=== PATIENT | male | born 1955 | race African-American/Black ===

== ENCOUNTER 2018-03-01 15:25 | Inpatient (IN) | payer MEDICAID ==
[~2018-03-01] VITALS: Ht 177.8 cm; Wt 73.9 kg
[~2018-03-01 15:25] MED LIST: ASPI-1159 PO; ATOR20TA65 PO; CLOP75TA33 PO; GABA-290 PO; METF-415 PO; METO-411 PO
[2018-03-01] MEDS ORDERED: ASPIRIN 325MG TABLET PO ONE (16:09)
[2018-03-01 16:45] LABS: CHLORIDE 102 mEq/L (98-107)
[2018-03-01 16:46] LABS: BASOPHILS % 0.4 % (0.0-2.0); EOSINOPHILS % 1.3 % (0.0-5.0); HEMATOCRIT. 48.3 % (42.0-52.0); HEMOGLOBIN. 15.6 g/dL (14.0-18.0); LYMPHOCYTES % 41.4 % (20.0-50.0); MEAN CORPUSCULAR HEMOGLOBIN 28.5 pg (28.0-32.0); MEAN CORPUSCULAR VOLUME 88.4 fL (80.0-94.0); NEUTROPHILS % 49.9 % (40.0-76.0); PLATELET 200 x1000/uL (130-400); RED BLOOD CELL COUNT 5.46 mill/uL (4.7-6.1); RED CELL DISTRIBUTION WIDTH 15.1 % (11.6-14.6)
[2018-03-01] MEDS: FUROSEMIDE 20MG/2ML VIAL IVP NR (17:33)
[2018-03-01] MEDS ORDERED: HYDROCODONE/ACETAMINOPHEN 5/325MG TABLET PO ONE (19:45)
[2018-03-01 20:00] VITALS: BP 133/74
[2018-03-01 20:28] VITALS: BP 133/74
[2018-03-01 20:30] VITALS: BP 133/74
[2018-03-01 20:50] LABS: LDL CHOLESTEROL 44 mg/dL (5-100)
[2018-03-01 20:52] LABS: CREATINE KINASE 177 IU/L (39-308); HDL CHOLESTEROL 48 mg/dL (40-59)
[2018-03-01] MEDS ORDERED: IPRATROPIUM/ALBUTEROL 0.5-3(2.5)MG/3ML NEB HHN PRN (22:45)
[2018-03-01] MEDS ORDERED: HYDROCODONE/ACETAMINOPHEN 5/325MG TABLET PO PRN (22:45)
[2018-03-02] VITALS: BP 122/57
[2018-03-02 04:00] VITALS: BP 125/69
[2018-03-02 08:00] VITALS: BP 118/71
[2018-03-02] MEDS: ASPIRIN 81MG TABLET PO SCH (08:17)
[2018-03-02] MEDS: ENOXAPARIN 40MG/0.4ML SYR SUBCUT SCH (08:17)
[2018-03-02] MEDS: FUROSEMIDE 40MG/4ML VIAL IVP SCH (08:17)
[2018-03-02 10:00] LABS: BASOPHILS % 0.3 % (0.0-2.0); EOSINOPHILS % 1.1 % (0.0-5.0); HEMATOCRIT. 46.3 % (42.0-52.0); HEMOGLOBIN. 14.8 g/dL (14.0-18.0); MEAN CORPUSCULAR HEMOGLOBIN 28.4 pg (28.0-32.0); MEAN CORPUSCULAR VOLUME 88.7 fL (80.0-94.0); MEAN PLATELET VOLUME 10.2 fl (7.4-10.4); MONOCYTES % 7.6 % (2.0-8.0); PLATELET 171 x1000/uL (130-400); RED BLOOD CELL COUNT 5.21 mill/uL (4.7-6.1); RED CELL DISTRIBUTION WIDTH 14.9 % (11.6-14.6)
[2018-03-02 11:26] LABS: CLARITY URINE CLEAR (CLEAR); COLOR URINE YELLOW (YELLOW); KETONES URINE TRACE (NEGATIVE); LEUKOCYTE ESTERASE URINE NEGATIVE (NEGATIVE); NITRITE URINE NEGATIVE (NEGATIVE); OCCULT BLOOD URINE NEGATIVE (NEGATIVE); PH URINE 5.5 (4.5-8.0); PROTEIN URINE NEGATIVE (NEGATIVE); SPECIFIC GRAVITY URINE 1.016 (1.005-1.030)
[2018-03-02 11:58] LABS: *AMPHETAMINES SCREEN URINE NEGATIVE (NEGATIVE); *BARBITURATES SCREEN URINE NEGATIVE (NEGATIVE); *BENZODIAZEPINES SCREEN URINE NEGATIVE (NEGATIVE); *COCAINE SCREEN URINE PRESUMTIVE POSITIVE (NEGATIVE)
[2018-03-02 12:00] VITALS: BP 127/70
[2018-03-02 12:00] LABS: CANNABINOID URINE SCREEN PRESUMTIVE POSITIVE (NEGATIVE); METHADONE URINE SCREEN NEGATIVE (NEGATIVE); OPIATES URINE SCREEN PRESUMTIVE POSITIVE (NEGATIVE); PHENCYCLIDINE URINE SCREEN NEGATIVE (NEGATIVE)
[2018-03-02 16:00] VITALS: BP_SYST 105; BP_SYST 115; BP_SYST 158; BP_DIAS 68; BP_DIAS 72; BP_DIAS 80
[2018-03-02 20:00] VITALS: BP_SYST 112; BP_SYST 120; BP_SYST 138; BP_DIAS 69; BP_DIAS 70; BP_DIAS 75
[2018-03-03 00:05] VITALS: BP 135/79
[2018-03-03 04:00] VITALS: BP 137/62
[2018-03-03 08:00] VITALS: BP_SYST 112; BP_SYST 136; BP_SYST 145; BP_DIAS 74; BP_DIAS 77; BP_DIAS 82
[2018-03-03] MEDS: ASPIRIN 81MG TABLET PO SCH (08:39)
[2018-03-03] MEDS: ENOXAPARIN 40MG/0.4ML SYR SUBCUT SCH (08:40)
[2018-03-03] MEDS: FUROSEMIDE 40MG/4ML VIAL IVP SCH (08:40)
[2018-03-03] MEDS ORDERED: LISINOPRIL 5MG TABLET PO SCH (09:30)
[2018-03-03 09:39] LABS: BASOPHILS % 0.5 % (0.0-2.0); EOSINOPHILS % 1.9 % (0.0-5.0); HEMATOCRIT. 46.6 % (42.0-52.0); LYMPHOCYTES % 46.4 % (20.0-50.0); MEAN CORPUSCULAR HEMOGLOBIN 28.4 pg (28.0-32.0); MEAN CORPUSCULAR VOLUME 88.2 fL (80.0-94.0); MEAN PLATELET VOLUME 9.9 fl (7.4-10.4); MONOCYTES % 8.5 % (2.0-8.0); NEUTROPHILS % 42.7 % (40.0-76.0); PLATELET 170 x1000/uL (130-400); RED BLOOD CELL COUNT 5.28 mill/uL (4.7-6.1); RED CELL DISTRIBUTION WIDTH 14.9 % (11.6-14.6)
[2018-03-03 10:02] LABS: CHLORIDE 103 mEq/L (98-107)
[2018-03-03 12:00] VITALS: BP 121/75
[2018-03-03] MEDS ORDERED: AMLO5TAB88 MT (12:09)
[2018-03-03] MEDS ORDERED: FURO40TA5 MT (12:09)
[2018-03-03] MEDS ORDERED: POTASSIUM CHLORIDE 20MEQ TABLET SR PO NR (12:15)
[2018-03-03 13:30] VITALS: BP 121/75
== END 2018-03-03 15:03 | disposition home or self-care (01) | DRG 194 ==
LOC: ER 15:25 → 7WST 18:29 → EDBEDREQTM 18:35 → EDBEDREQ 18:35 → ENRESERV 19:41 → 7WST 20:45
PROVIDERS: ADMIT Internal Medicine; ATTEND Internal Medicine
DX: I13.0 Hypertensive heart and chronic kidney disease with heart failure and stage 1 through stage 4 chronic kidney disease, or unspecified chronic kidney disease (principal); N17.9 Acute kidney failure, unspecified; I42.9 Cardiomyopathy, unspecified; I08.3 Combined rheumatic disorders of mitral, aortic and tricuspid valves; I45.81 Long QT syndrome; I50.21 Acute systolic (congestive) heart failure; R55 Syncope and collapse; N18.9 Chronic kidney disease, unspecified; J44.9 Chronic obstructive pulmonary disease, unspecified; F17.200 Nicotine dependence, unspecified, uncomplicated; F12.90 Cannabis use, unspecified, uncomplicated; F14.90 Cocaine use, unspecified, uncomplicated; E11.9 Type 2 diabetes mellitus without complications; I25.10 Atherosclerotic heart disease of native coronary artery without angina pectoris; Z95.5 Presence of coronary angioplasty implant and graft; Z95.1 Presence of aortocoronary bypass graft; Z79.899 Other long term (current) drug therapy; Z79.82 Long term (current) use of aspirin
CPT/HCPCS: 36415; 70551; 71045; 80048; 80061; 80305; 82550; 82553; 83880; 84443; 84484; 93005; 93306; 93970; 96374; 99285; J1650; J1940